=== PATIENT | male | born 1965 | race African-American/Black ===

== ENCOUNTER 2018-03-08 22:10 | Emergency (ER) | payer SELFPAY ==
[~2018-03-08] VITALS: Ht 190.5 cm; Wt 104.3 kg
[2018-03-08] MEDS ORDERED: NORCO 10-325 T1 EACH ORAL (22:22)
[2018-03-08] MEDS ORDERED: PROCHLORPE10 MG/2 ML IM (22:23)
[2018-03-08] MEDS ORDERED: CAFERGOT TABLE1 EACH PO (22:23)
[2018-03-08] MEDS ORDERED: REGLAN10 M1 ORAL (22:23)
[2018-03-08] MEDS ORDERED: ZOFRAN4 M3 ORAL (22:23)
[2018-03-08 22:42] VITALS: BP 152/96
--- NOTE | 2018-03-08 22:42 | Emergency Room Report ---
History of Present Illness General Chief Complaint: Pain Source: Patient Present Illness HPI Patient presents with a migraine. This is set off by having arch bars placed for a broken jaw. He's not taking antibiotics right now. He denies having fever. In the past she's received Dilaudid 2 mg IM for this type of pain. He started taken Reglan, [place] and Compazine at home without relief. He's had adverse reactions to Toradol and also Maxalt. Some swelling L side of face. This is his usual migraine pattern. Pain rated 9/10, pounding, L sided. No change vision. He drank some alcohol earlier today. No NV. No weakness, blood thinners, rashes. Able to eat with Arch Bars. No change in stool. Allergies: Coded Allergies: KETOROLAC (Verified Allergy, Unknown, 03/08/18) RIZATRIPTAN (Verified Allergy, Unknown, 03/08/18) Patient History Past Medical History: see triage record Social History: Denies: smoking Social History Narrative with sig other Reviewed Nursing Documentation: PMH: Agreed; PSxH: Agreed Nursing Documentation-PMH Past Medical History: No Stated History Physical Exam Vital Signs Date Time Temp Pulse Resp B/P (MAP) Pulse Ox O2 Delivery O2 Flow Rate FiO2 03/08/18 22:17 98.4 94 16 152/96 97 Room Air Sp02 EP Interpretation: reviewed, normal General Appearance: well appearing, no apparent distress, GCS 15, other - some alcohol on breath Head: normocephalic, atraumatic Eyes: bilateral eye normal inspection, bilateral eye PERRL ENT: moist mucus membranes, other - arch bars, Slight L facial swelling Neck: supple Respiratory: lungs clear, normal breath sounds Cardiovascular #1: regular rate, rhythm Cardiovascular #2: 2+ radial (R) Gastrointestinal: normal inspection, normal bowel sounds, non tender, no mass, non-distended Musculoskeletal: back normal, gait/station normal, normal range of motion Neurologic: alert, oriented x3, instrument operator III-XII nml as tested, motor strength/tone normal, DTRs symmetric, sensory intact, cerebellar normal, normal gait, speech normal Skin: normal inspection, warm/dry Medical Decision Making Diagnostic Impression: Primary Impression: Migraine Qualified Codes: G43.909 - Migraine, unspecified, not intractable, without status migrainosus Additional Impression: Facial fracture Qualified Codes: S02.92XD - Unspecified fracture of facial bones, subsequent encounter for fracture with routine healing ER Course Patient post arch-bar placement now with headache. DDx: sinusitis, migraine, tension [place], dental infection amongst others. Neurologic exam normal. Slight facial swelling. Analgesia indicated. Also will restart on antibiotics. Improved with treatment. Patient stable for outpatient observation and treatment. Last Vital Signs Date Time Temp Pulse Resp B/P (MAP) Pulse Ox O2 Delivery O2 Flow Rate FiO2 03/08/18 23:27 98.5 86 16 126/78 100 Room Air Status: improved Disposition: HOME, SELF-CARE Condition: Improved Scripts Amoxicillin* (AMOXIL*) 500 Mg Capsule 500 MG ORAL THREE TIMES A DAY, #21 CAP Prov: Tod Carmona MD 03/08/18 Tod Carmona MD Mar 08, 2018 22:42
[2018-03-08] MEDS ORDERED: HYDROmorphone 1mg/ml Carpuject IM ONE (22:45)
[2018-03-08] MEDS ORDERED: AMOXICILLIN500 MG ORAL (23:16)
[2018-03-08 23:27] VITALS: BP 126/78
== END 2018-03-08 23:27 | disposition home or self-care (01) ==
LOC: EMR 23:00
DX: G43.909 Migraine, unspecified, not intractable, without status migrainosus (principal); S02.92XD Unspecified fracture of facial bones, subsequent encounter for fracture with routine healing; Z79.899 Other long term (current) drug therapy
CPT/HCPCS: 96372; 99283; J1170

== ENCOUNTER 2018-03-15 21:38 | Emergency (ER) | payer SELFPAY ==
[~2018-03-15] VITALS: Ht 190.5 cm; Wt 104.3 kg
[~2018-03-15 21:38] MED LIST: AMOXICILLIN500 MG ORAL; CAFERGOT TABLE1 EACH PO; NORCO 10-325 T1 EACH ORAL; PROCHLORPE10 MG/2 ML IM; REGLAN10 M1 ORAL; ZOFRAN4 M3 ORAL
[2018-03-15 21:54] VITALS: BP 125/77
--- NOTE | 2018-03-15 21:59 | Emergency Room Report ---
History of Present Illness General Chief Complaint: Headache Source: Patient Present Illness HPI Is a 52-year-old male with a history of migraine. He said he is taking narcotic at home already. He had a recent jaw surgery which said trigger his migraine. He was here last week. He said he usually received Dilaudid shot for this. He presents with chief complaint of headache. Similar headache in the past. 10 out of 10. No nausea no vomiting. Said his pain medicine is not helping. No fever chills but denies any other complaint. Allergies: Coded Allergies: KETOROLAC (Verified Allergy, Unknown, 03/08/18) RIZATRIPTAN (Verified Allergy, Unknown, 03/08/18) Patient History Past Medical History: see triage record, old chart reviewed Past Surgical History: other Pertinent Family History: none Social History: Denies: smoking Immunizations: other Reviewed Nursing Documentation: PMH: Agreed; PSxH: Agreed Nursing Documentation-PMH Past Medical History: No Stated History Review of Systems Eye: Denies: eye pain, blurred vision ENT: Denies: ear pain, nose congestion, throat swelling Respiratory: Denies: cough, shortness of breath Cardiovascular: Denies: chest pain, palpitations Gastrointestinal: Denies: abdominal pain, diarrhea, nausea, vomiting Musculoskeletal: Denies: back pain, joint pain Skin: Denies: rash Neurological: Reports: headache; Denies: numbness Endocrine: Denies: increased thirst, increased urine Hematologic/Lymphatic: Denies: easy bruising All Other Systems: negative except mentioned in HPI Physical Exam Vital Signs Date Time Temp Pulse Resp B/P (MAP) Pulse Ox O2 Delivery O2 Flow Rate FiO2 03/15/18 21:42 98.2 89 18 171/97 98 Room Air vitals with high blood pressure Sp02 EP Interpretation: reviewed, normal General Appearance: well appearing, no apparent distress, alert Head: normocephalic, atraumatic Eyes: bilateral eye PERRL, bilateral eye EOMI ENT: hearing grossly normal, normal pharynx Neck: full range of motion, supple, no meningismus Respiratory: chest non-tender, lungs clear, normal breath sounds Cardiovascular #1: regular rate, rhythm, no murmur Gastrointestinal: normal bowel sounds, non tender, no mass, no organomegaly, no bruit, non-distended Musculoskeletal: back normal, gait/station normal, normal range of motion Psychiatric: mood/affect normal Skin: warm/dry Medical Decision Making Diagnostic Impression: Primary Impression: Headache Qualified Codes: R51 - Headache ER Course Patient presents with chief complaint of headache. No evidence of meningitis, bleed or neoplastic process. He looks very comfortable. Even know he said he gets narcotics prescription from a neurologist from [place], I see no prescription on cures for the last year. The window patient checked in, he said he does not have his ID with him. He said he gave it to his who drove him here. She never showed up. Last Vital Signs Date Time Temp Pulse Resp B/P (MAP) Pulse Ox O2 Delivery O2 Flow Rate FiO2 03/15/18 21:42 98.2 89 18 171/97 98 Room Air Status: improved Disposition: HOME, SELF-CARE Condition: Stable Patient Instructions: Migraine Headache Additional Instructions: Follow-up with your doctor in 7 days. Return if worse. Kenny Jamison MD Mar 15, 2018 21:59
[2018-03-15] MEDS ORDERED: Morphine Sulfate 4mg/ml Inj (IV/IM USE ONLY) IM ONE (22:00)
[2018-03-15 22:19] VITALS: BP 168/94
== END 2018-03-15 22:10 | disposition home or self-care (01) ==
LOC: EMR 21:56
DX: R51 Headache (principal); Z88.8 Allergy status to other drugs, medicaments and biological substances
CPT/HCPCS: 96372; 99283; J2270; J2550

== ENCOUNTER 2018-04-14 17:04 | Emergency (ER) | payer SELFPAY ==
[~2018-04-14] VITALS: Ht 190.5 cm; Wt 104.3 kg
--- NOTE | 2018-04-14 17:23 | Emergency Room Report ---
History of Present Illness General Chief Complaint: Pain Source: Patient Present Illness HPI 53-year-old male presents to the emergency department complaining of 9 out of 10 in severity pain to the upper jaw and states that he is status post mandible surgery this past Friday. Patient states that he is currently taking 10 mg [place] at home and this is not relieving his symptoms. Patient states that the pain is also causing him to have a headache. Patient denies nausea or vomiting. He denies fevers, chills, discharge or bleeding about the surgical site. He denies new trauma or fall. He denies sudden onset of headache or dizziness. Denies any relieving factors. Allergies: Coded Allergies: KETOROLAC (Verified Allergy, Unknown, 03/08/18) RIZATRIPTAN (Verified Allergy, Unknown, 03/08/18) Patient History Past Medical History: see triage record Past Surgical History: none Pertinent Family History: none Reviewed Nursing Documentation: PMH: Agreed; PSxH: Agreed Nursing Documentation-PMH Past Medical History: No History, Except For Review of Systems All Other Systems: negative except mentioned in HPI Physical Exam Vital Signs Date Time Temp Pulse Resp B/P (MAP) Pulse Ox O2 Delivery O2 Flow Rate FiO2 04/14/18 17:07 97.9 82 18 148/89 98 Room Air Medical Decision Making PA Attestation Dr. Li is my supervising Physician whom patient management has been discussed with. Diagnostic Impression: Primary Impression: Chronic pain in face ER Course 53-year-old male presents to the emergency department complaining of 9 out of 10 in severity pain to the upper jaw and states that he is status post mandible surgery this past Friday. Patient states that he is currently taking 10 mg [place] at home and this is not relieving his symptoms. Patient states that the pain is also causing him to have a headache. Patient denies nausea or vomiting. He denies fevers, chills, discharge or bleeding about the surgical site. He denies new trauma or fall. He denies sudden onset of headache or dizziness. Denies any relieving factors. Ddx considered but are not limited to Opioid Dependence/tolerance, Infection, follow-up non-compliance, surgery complication just to name a few. Vital signs: are WNL, pt. is afebrile. H&PE are most consistent with: Habitual ED visits requesting IM opioid medication specifically Dilaudid. Pt. is Calm, and does not appear to be in any acute distress, normal VS. I do not suspect an emergent condition at this time. no signs of infection of his gums/ jaw. I asked patient how many surgeries he has had on his jaw as the last two visits he reported just having surgery in the same area as well. Pt. clarifies that on Friday he had a follow up appointment and his surgeon "adjusted" his current hardware and this caused onset of his pain. ORDERS: none required at this time, the diagnosis is clinical. ED INTERVENTIONS: -Pt. was offered Percocet PO- d/w pt. that this is stronger than the medication that he reports to already be taking. Pt. declined PO pain medications, and stated only Dilaudid works for his pain. I d/w pt. that tomorrow morning he needs to contact his surgeon to discuss proper pain management and that his pain has not been well controlled and required 3 ED visits with in the last 36 days. * - I reviewed this pt. CURES report and there are no active prescriptions for controlled substances in [place] over the last 12 months., external medication hx also did not reveal any opiate rx's. -I do not identify an emergent condition at this time. With current presentation , pt. is stable for close outpatient follow up and conservative treatment. D/ w pt. to return promptly to ED with worsening or new symptoms.- Pt. verbalizes' understanding and states he will continue his current regimen as he does not want to take any alternative medications other than IM Dilaudid. -Review of this patients previous visits and in light of today's ED visit I highly suspect Opioid dependence and tolerance as well as drug seeking behavior and non-compliance with proper follow up instructions. DISCHARGE: At this time pt. is stable for d/c to home. Will provide printed patient care instructions, and any necessary prescriptions. Care plan and follow up instructions have been discussed with the patient prior to discharge. Last Vital Signs Date Time Temp Pulse Resp B/P (MAP) Pulse Ox O2 Delivery O2 Flow Rate FiO2 04/14/18 17:07 97.9 82 18 148/89 98 Room Air Disposition: HOME, SELF-CARE Condition: Stable Patient Instructions: Medical Screening Exam Additional Instructions: Take medications as directed. Follow up with your Surgeon for: Pain management or for a referral to pain management within 3-5 days, even if your symptoms have resolved. Your surgeon needs to be notified of your need to frequent the ED due to pain not being controlled with your current medications. Opioid medications are highly addictive and cause dependence.Care must be taken with frequent use. For patient safety, one prescribing/managing provider is recommended at a time. Return sooner to ED if new symptoms occur, or if you change your mind and would like to receive treatment offered, that you declined. - Please note that this Emergency Department Report was dictated using [employer] builder helper technology software, occasionally this can lead to erroneous entry secondary to interpretation by the dictation equipment. Yuki Cotton Apr 14, 2018 17:23
[2018-04-14 17:34] VITALS: BP_SYST 141; BP_SYST 148; BP_DIAS 78; BP_DIAS 89
== END 2018-04-14 17:34 | disposition home or self-care (01) ==
LOC: EMR 17:30
DX: R68.84 Jaw pain (principal); G89.29 Other chronic pain; Z98.890 Other specified postprocedural states
CPT/HCPCS: 99282

== ENCOUNTER 2018-06-01 20:27 | Emergency (ER) | payer SELFPAY ==
[~2018-06-01] VITALS: Ht 190.5 cm; Wt 104.3 kg
[2018-06-01 20:51] VITALS: BP 158/92
--- NOTE | 2018-06-01 20:52 | NUR ---
ED Nurse Note: Patient ambulated to ED c/o lower back pain s/p lifting heavy object x 4 days ago 1100. no skin issues noted. no physical trauma noted.
[2018-06-01] MEDS ORDERED: IBUPROFEN600 MG ORAL (21:16)
--- NOTE | 2018-06-01 21:17 | Emergency Room Report ---
History of Present Illness General Chief Complaint: Back Pain-No Injury Source: Patient Present Illness HPI This is a 53-year-old male with history of chronic pain. He said he is taking [place] for her migraine. He presents with chief complaint of low back pain. He said this occurred 4 days ago after lifting his mother from the bathtub. Pain to the left lower back rating down his leg. No incontinence of bowel or urine. No nausea no vomiting. No fever or chills. Pain is 9 out of 10. No anesthesia or trauma. No fever. Patient wants a Dilaudid shot. He said normally when he goes to the hospital for his pain, he get a shot. Allergies: Coded Allergies: KETOROLAC (Verified Allergy, Unknown, 06/01/18) RIZATRIPTAN (Verified Allergy, Unknown, 06/01/18) Patient History Past Medical History: see triage record, old chart reviewed Past Surgical History: other Pertinent Family History: none Social History: Denies: smoking Immunizations: other Reviewed Nursing Documentation: PMH: Agreed; PSxH: Agreed Nursing Documentation-PMH Past Medical History: No History, Except For Review of Systems Eye: Denies: eye pain, blurred vision ENT: Denies: ear pain, nose congestion, throat swelling Respiratory: Denies: cough, shortness of breath Cardiovascular: Denies: chest pain, palpitations Gastrointestinal: Denies: abdominal pain, diarrhea, nausea, vomiting Musculoskeletal: Reports: back pain; Denies: joint pain Skin: Denies: rash Neurological: Denies: headache, numbness Endocrine: Denies: increased thirst, increased urine Hematologic/Lymphatic: Denies: easy bruising All Other Systems: negative except mentioned in HPI Physical Exam Vital Signs Date Time Temp Pulse Resp B/P (MAP) Pulse Ox O2 Delivery O2 Flow Rate FiO2 06/01/18 20:40 98.4 123 22 162/94 96 Room Air vitals with tachycardia Sp02 EP Interpretation: reviewed, normal General Appearance: well appearing, no apparent distress, alert Head: normocephalic, atraumatic Eyes: bilateral eye PERRL, bilateral eye EOMI ENT: hearing grossly normal, normal pharynx Neck: full range of motion, supple, no meningismus Respiratory: chest non-tender, lungs clear, normal breath sounds Cardiovascular #1: regular rate, rhythm, no murmur Gastrointestinal: normal bowel sounds, non tender, no mass, no organomegaly, no bruit, non-distended Musculoskeletal: back normal, gait/station normal, normal range of motion Psychiatric: mood/affect normal Skin: warm/dry Medical Decision Making Diagnostic Impression: Primary Impression: Back pain Qualified Codes: M54.42 - Lumbago with sciatica, left side ER Course Patient presents with back pain consistent with sciatica. I see no red flags indicate cauda equina syndrome, spinal epidural abscess or neoplastic process. Patient has been here a few times for headache and chronic pain complaint. He also has been dependent on the hospitals for similar complaint. I suspect drug seeking behavior. Even though he said that he got [place] prescription from [facility] and his primary care Dr. claros last month, I see no prescription under this name under the [email or web address] system. Last Vital Signs Date Time Temp Pulse Resp B/P (MAP) Pulse Ox O2 Delivery O2 Flow Rate FiO2 06/01/18 20:51 98.4 81 22 158/92 96 Room Air Status: unchanged Disposition: HOME, SELF-CARE Condition: Stable Scripts Ibuprofen* (MOTRIN*) 600 Mg Tablet 600 MG ORAL THREE TIMES A DAY, #30 TAB 0 Refills Prov: Kenny Jamison MD 06/01/18 Patient Instructions: Back Pain, Adult Additional Instructions: Take your [place]. Follow-up with your doctor in 7 days. If not better, may need MRI. Return if worse. Kenny Jamison MD Jun 01, 2018 21:17
[2018-06-01 21:32] VITALS: BP 150/93
--- NOTE | 2018-06-01 21:33 | NUR ---
ER DISCHARGE NOTE: Patient is cleared to be discharged per ERMD, pt is aox4, on room air, with stable vital signs. pt was given dc and prescription instructions, pt was able to verbalize understanding, pt id band removed without complications. pt is able to ambulate with steady gait. pt took all belongings.
== END 2018-06-01 21:35 | disposition home or self-care (01) ==
LOC: EMR 21:10
DX: M54.42 Lumbago with sciatica, left side (principal); G89.29 Other chronic pain; G43.909 Migraine, unspecified, not intractable, without status migrainosus; F17.200 Nicotine dependence, unspecified, uncomplicated; Z88.6 Allergy status to analgesic agent; Z88.8 Allergy status to other drugs, medicaments and biological substances
CPT/HCPCS: 99282